=== PATIENT | male | born 1980 | race Caucasian/White ===

== ENCOUNTER 2018-09-22 15:41 | Emergency (ER) | payer BC, MEDICAID ==
[~2018-09-22] VITALS: Ht 175.3 cm; Wt 77.1 kg
--- NOTE | 2018-09-22 15:50 | NUR ---
PT BIB SELF C/O NON RADIATING LEFT SIDED CP X 2 HRS, +NAUSEOUS, NO VOMITING. ON ROOM AIR, BREATHING EVENLY AND UNLABORED. SKIN WARM TO TOUCH, CONNECTED TO THE MONITOR AND PULSE OX. KEPT COMFORTABLE. AWAITING FOR MD FOR EVAL. WILL CONTINUE TO MONITOR ACCORDINGLY.
--- NOTE | 2018-09-22 15:54 | NUR ---
DR. CASTORENA AT BEDSIDE FOR EVAL.
[2018-09-22] MEDS ORDERED: KETOROLAC TROMETHAMINE INJ 30 MG/ML VIAL IV ONE (16:00)
[2018-09-22 16:04] LABS: BASOPHILS % (AUTO) 0.5 % (0.0-2.0); EOSINOPHILS % (AUTO) 0.7 % (0.0-6.0); HEMATOCRIT 49 % (39-51); LYMPHOCYTES # (AUTO) 1.6 /CMM (0.8-4.8); LYMPHOCYTES % (AUTO) 21.4 % (20.0-44.0); MEAN CORPUSCULAR HGB CONC 35 g/dl (31.0-36.0); MEAN CORPUSCULAR VOLUME 84 fL (80-96); MONOCYTES # (AUTO) 0.6 /CMM (0.1-1.30); MONOCYTES % (AUTO) 7.7 % (2.0-12.0); NEUTROPHILS # (AUTO) 5.2 /CMM (1.8-8.9); NEUTROPHILS % (AUTO) 69.7 % (43.0-81.0); PLATELET COUNT (AUTO) 225 /CMM (150-450); WHITE BLOOD COUNT (AUTO) 7.4 K/uL (4.3-11.0)
[2018-09-22] MEDS ORDERED: KETOROLAC TROMETHAMINE INJ 30 MG/ML VIAL ONE (16:06)
[2018-09-22 16:15] LABS: CALCIUM, SERUM 9.2 mg/dL (8.5-10.1); CARBON DIOXIDE 31 mmol/L (21-32); CHLORIDE 101 mmol/L (98-107); CREATININE 1.2 mg/dL (0.6-1.3); GLUCOSE 115 mg/dL (74-106); POTASSIUM 3.7 mmol/L (3.5-5.1); SODIUM SERUM 138 mmol/L (136-145); UREA NITROGEN, BLOOD 23 mg/dL (7-18)
[2018-09-22 16:43] LABS: D-DIMER < 0.19 mg/L(FEU (0.17-0.50)
--- NOTE | 2018-09-22 19:10 | NUR ---
report given to pretty RAY for tania.
--- NOTE | 2018-09-22 19:19 | NUR ---
received endorsement from FLOR Hinkle. will continue with pt's tania.
--- NOTE | 2018-09-22 20:07 | NUR ---
Patient discharged to home in stable condition. Written and verbal after care instructions given. Patient verbalizes understanding of instruction. Removed IV access on LAC #20g. Secured area with gauze and tape. No signs of bleeding noted. No s/s of acute distress or sob noted. Pt left facility on foot with steady gait, at bedside will take pt back home.
[2018-09-22 20:12] VITALS: BP 135/70
== END 2018-09-22 20:13 | disposition home or self-care (01) ==
LOC: ER 15:43
DX: R07.89 Other chest pain (principal); M25.512 Pain in left shoulder; R11.0 Nausea; I44.5 Left posterior fascicular block
CPT/HCPCS: 36415; 71045; 80048; 84484 ×2; 85025; 85378; 85730; 93005 ×2; 96374; 99284; A4606; J1885; Z7610

== ENCOUNTER 2018-12-02 06:24 | Emergency (ER) | payer BC ==
[~2018-12-02] VITALS: Ht 175.3 cm; Wt 76.2 kg
[2018-12-02 06:30] VITALS: BP 128/82
--- NOTE | 2018-12-02 06:45 | NUR ---
Pt came to emergency dept. complaining of L foot pain after getting out of bed and falling. Pt AXO4. Respirations even and unlabored. Pt put on the pvc monitor and pulse ox.
[2018-12-02] MEDS ORDERED: KETOROLAC TROMETHAMINE INJ 30 MG/ML VIAL ONE (06:54)
[2018-12-02] MEDS ORDERED: KETOROLAC TROMETHAMINE INJ 60 MG/2 ML VIAL IM ONE (07:00)
--- NOTE | 2018-12-02 07:32 | NUR ---
Report Given to Manan RAY for IMAN.
== END 2018-12-02 07:36 | disposition home or self-care (01) ==
LOC: ER 06:24
DX: S93.692A Other sprain of left foot, initial encounter (principal); F10.10 Alcohol abuse, uncomplicated; Y90.9 Presence of alcohol in blood, level not specified; Z90.89 Acquired absence of other organs; X50.1XXA Overexertion from prolonged static or awkward postures, initial encounter; Y93.89 Activity, other specified; Y92.89 Other specified places as the place of occurrence of the external cause; Y99.8 Other external cause status
CPT/HCPCS: 29515; 73620; 96372; 99283; J1885

== ENCOUNTER 2018-12-31 19:43 | Emergency (ER) | payer BC ==
[~2018-12-31] VITALS: Ht 175.3 cm; Wt 77.1 kg
[2018-12-31] MEDS ORDERED: diphenhydrAMINE HCL 25 MG CAPSULE ONE (20:26)
[2018-12-31] MEDS ORDERED: IBUPROFEN 400 MG TABLET ONE (20:26)
[2018-12-31] MEDS ORDERED: ONDANSETRON 4 MG TAB.RAPDIS ONE (20:26)
[2018-12-31] MEDS ORDERED: diphenhydrAMINE HCL 25 MG CAPSULE PO ONE (20:30)
[2018-12-31] MEDS ORDERED: IBUPROFEN 400 MG TABLET PO ONE (20:30)
[2018-12-31] MEDS ORDERED: ONDANSETRON 4 MG TAB.RAPDIS PO ONE (20:30)
--- NOTE | 2018-12-31 20:59 | NUR ---
PT'S RASH APPEARS TO BE ALMOST GONE. PT IS AWAITING DC HOME.
--- NOTE | 2018-12-31 21:05 | NUR ---
Patient discharged to home in stable condition. Written and verbal after care instructions given. Patient verbalizes understanding of instruction AND RX. PT AMBULATED OUT WITH A STEADY GAIT. PT WAS INSTRUCTED NOT TO DRIVE. PT'S FATHER IS DRIVING PT HOME. VSS
[2018-12-31 21:08] VITALS: BP 125/76
== END 2018-12-31 21:09 | disposition home or self-care (01) ==
LOC: ER 19:45
DX: T63.391A Toxic effect of venom of other spider, accidental (unintentional), initial encounter (principal); Z90.89 Acquired absence of other organs; Y92.89 Other specified places as the place of occurrence of the external cause
CPT/HCPCS: 99284; Q0162; Q0163

== ENCOUNTER 2019-04-19 09:42 | Emergency (ER) | payer BC, OTHER ==
[~2019-04-19] VITALS: Ht 175.3 cm; Wt 79.4 kg
--- NOTE | 2019-04-19 09:45 | NUR ---
BIBRA FROM C/O ABDOMINAL PAIN STARTED LAST NIGHT, PT IS AAOX4, NOT IN RSEPIRATORY, HOOKED TO MONITOR, KEPT RESTED AND COMFORTABLE, WILL CONTINUE TO MONITOR.
--- NOTE | 2019-04-19 09:50 | NUR ---
URINE SPECIMEN COLLECTED AND SENT TO LAB.
--- NOTE | 2019-04-19 09:51 | NUR ---
SEEN AND EXAMINED BY .
[2019-04-19] MEDS ORDERED: KETOROLAC TROMETHAMINE 15 MG/ML VIAL ONE (09:54)
[2019-04-19] MEDS ORDERED: MORPHINE SULFATE INJ 2 MG/ML DISP.SYRIN ONE (09:54)
[2019-04-19] MEDS ORDERED: ONDANSETRON HCL/PF 4 MG/2 ML VIAL ONE (09:54)
[2019-04-19] MEDS ORDERED: MORPHINE SULFATE INJ 4 MG/ML DISP.SYRIN ONE (09:54)
[2019-04-19] MEDS ORDERED: IV NS 0.9% 1,000 ML BAG IV ONE (10:00)
[2019-04-19] MEDS ORDERED: KETOROLAC TROMETHAMINE INJ 30 MG/ML VIAL IV ONE (10:00)
[2019-04-19] MEDS ORDERED: MORPHINE SULFATE INJ 2 MG/ML DISP.SYRIN IV ONE (10:00)
[2019-04-19] MEDS ORDERED: ONDANSETRON HCL/PF 4 MG/2 ML VIAL IVP ONE (10:00)
--- NOTE | 2019-04-19 10:00 | NUR ---
BLOOD DRAWNED AND SENT TO LAB.
[2019-04-19 10:07] LABS: BASOPHILS % (AUTO) 0.2 % (0.0-2.0); EOSINOPHILS % (AUTO) 0.1 % (0.0-6.0); HEMATOCRIT 47 % (39-51); LYMPHOCYTES # (AUTO) 0.3 /CMM (0.8-4.8); LYMPHOCYTES % (AUTO) 3.4 % (20.0-44.0); MEAN CORPUSCULAR HGB CONC 34 g/dl (31.0-36.0); MEAN CORPUSCULAR VOLUME 84 fL (80-96); MONOCYTES # (AUTO) 0.6 /CMM (0.1-1.30); MONOCYTES % (AUTO) 7.6 % (2.0-12.0); NEUTROPHILS # (AUTO) 6.9 /CMM (1.8-8.9); NEUTROPHILS % (AUTO) 88.7 % (43.0-81.0); PLATELET COUNT (AUTO) 190 /CMM (150-450); RED BLOOD CELL COUNT(AUTO) 5.56 MIL/uL (4.5-6.0); WHITE BLOOD COUNT (AUTO) 7.8 K/uL (4.3-11.0)
[2019-04-19 10:11] LABS: CALCIUM, SERUM 8.8 mg/dL (8.5-10.1); CREATININE 1.3 mg/dL (0.6-1.3); POTASSIUM 3.6 mmol/L (3.5-5.1)
[2019-04-19 10:17] LABS: ALBUMIN 3.8 g/dL (3.4-5.0); BILIRUBIN,DIRECT 0.1 mg/dL (0.0-0.2); BILIRUBIN,TOTAL 0.8 mg/dL (0.2-1.0); TOTAL PROTEIN, SERUM 6.7 g/dL (6.4-8.2)
--- NOTE | 2019-04-19 10:21 | NUR ---
PT IS WHEELED TO CT SCAN VIA [facility].
[2019-04-19 11:42] LABS: APPEARANCE,URINE Clear (CLEAR); BILIRUBIN,URINE Negative (NEGATIVE); BLOOD, URINE Negative Ery/uL (NEGATIVE); COLOR,URINE Yellow (YELLOW); KETONES,URINE 15 (NEGATIVE); LEUKOCYTE ESTERASE ,URINE Negative (NEGATIVE); NITRITE, URINE Negative (NEGATIVE); PH,URINE 8.5 (5.0-8.0); PROTEIN,URINE Negative (NEGATIVE); UGLUCOSE Negative (NEGATIVE)
[2019-04-19 11:56] LABS: BACTERIA,URINE Rare /HPF (None Seen); RBC,URINE NONE SEEN /HPF (0-2); SQUAMOUS EPITHELIAL CELL,UR Few /HPF (None Seen); WBC,URINE NONE SEEN /HPF (0-3)
--- NOTE | 2019-04-19 12:51 | NUR ---
IV removed. Catheter intact and site benign. Pressure and 4x4 applied to site. No bleeding noted. Patient discharged to home in stable condition. Written and verbal after care instructions given. Patient verbalizes understanding of instruction.
[2019-04-19 12:52] VITALS: BP 112/69
== END 2019-04-19 12:57 | disposition home or self-care (01) ==
LOC: ER 09:44
DX: R10.84 Generalized abdominal pain (principal); R11.2 Nausea with vomiting, unspecified
CPT/HCPCS: 36415; 74176; 80048; 80076; 81001; 83690; 85025; 93005; 96361; 96374; 96375; 99284; J1885; J2270 ×2; J2405; J7030; 81000-TC

== ENCOUNTER 2021-06-12 14:42 | Emergency (ER) | payer BC, OTHER ==
[~2021-06-12] VITALS: Ht 177.8 cm; Wt 72.6 kg
[2021-06-12] MEDS ORDERED: KETOROLAC TROMETHAMINE INJ 30 MG/ML VIAL IV ONE (15:30)
[2021-06-12] MEDS ORDERED: IV NS 0.9% 1,000 ML BAG IV ONE (15:30)
[2021-06-12] MEDS ORDERED: KETOROLAC TROMETHAMINE INJ 30 MG/ML VIAL ONE (15:50)
--- NOTE | 2021-06-12 15:50 | NUR ---
Aware of plan of care. Compliant and cooperative NO obvious distress
[2021-06-12 15:52] LABS: BASOPHILS % (AUTO) 0.3 % (0.0-2.0); EOSINOPHILS % (AUTO) 0.5 % (0.0-6.0); HEMATOCRIT 45 % (39-51); LYMPHOCYTES # (AUTO) 0.8 K/uL (0.8-4.8); LYMPHOCYTES % (AUTO) 16.2 % (20.0-44.0); MEAN CORPUSCULAR HGB CONC 34 g/dl (31.0-36.0); MEAN CORPUSCULAR VOLUME 85 fL (80-96); MONOCYTES # (AUTO) 0.6 K/uL (0.1-1.30); MONOCYTES % (AUTO) 12.6 % (2.0-12.0); NEUTROPHILS # (AUTO) 3.4 K/uL (1.8-8.9); NEUTROPHILS % (AUTO) 70.4 % (43.0-81.0); PLATELET COUNT (AUTO) 185 K/uL (150-450); RED BLOOD CELL COUNT(AUTO) 5.24 MIL/uL (4.5-6.0); WHITE BLOOD COUNT (AUTO) 4.9 K/uL (4.3-11.0)
--- NOTE | 2021-06-12 16:00 | NUR ---
COVID SWAB DONE AND SENT TO THE LAB
[2021-06-12 16:05] LABS: CALCIUM, SERUM 8.7 mg/dL (8.5-10.1); CREATININE 1.2 mg/dL (0.6-1.3); POTASSIUM 4.1 mmol/L (3.5-5.1)
[2021-06-12 16:11] LABS: ALBUMIN 3.9 g/dL (3.4-5.0); BILIRUBIN,DIRECT 0.1 mg/dL (0.0-0.2); BILIRUBIN,TOTAL 0.5 mg/dL (0.2-1.0); TOTAL PROTEIN, SERUM 7.1 g/dL (6.4-8.2)
--- NOTE | 2021-06-12 16:30 | NUR ---
Dozing on/off NO acute changes
[2021-06-12 17:00] LABS: BILIRUBIN,URINE NEGATIVE (NEGATIVE); COLOR,URINE YELLOW (YELLOW); LEUKOCYTE ESTERASE ,URINE NEGATIVE (NEGATIVE); NITRITE, URINE NEGATIVE (NEGATIVE); PROTEIN,URINE NEGATIVE (NEGATIVE); UGLUCOSE NEGATIVE (NEGATIVE); UROBILINOGEN,URINE 0.2 EU/dL (0.2)
[2021-06-12 17:14] VITALS: BP 117/66
--- NOTE | 2021-06-12 17:15 | NUR ---
Patient discharged to home in stable condition. Written and verbal after care instructions given. Patient verbalizes understanding of instruction.
== END 2021-06-12 17:15 | disposition home or self-care (01) ==
LOC: ER 14:49
DX: R51.9 Headache, unspecified (principal); Z20.822 Contact with and (suspected) exposure to COVID-19; R94.31 Abnormal electrocardiogram [ECG] [EKG]
CPT/HCPCS: 36415; 71045; 80048; 80076; 81003; 85025; 87426; 93005; 96374; 99285; C9803; J1885; J7030